=== PATIENT | female | born 1995 | race Caucasian/White ===

== ENCOUNTER 2018-07-30 17:43 | Observation (INO) | payer MEDICAID ==
[~2018-07-30] VITALS: Ht 162.6 cm; Wt 55.3 kg
--- NOTE | 2018-07-30 00:15 | NUR ---
FLUSHED IV AND RE-TAPED IT IS SOUNDING OCCLUSION ALARMS OFTEN. WILL CONTINUE TO MONITOR FOR NEEDS.
[2018-07-30] MEDS ORDERED: PRENAVITE1 TAB PO (17:59)
[2018-07-30 18:35] LABS: BASOPHILS 0.1 % (0-2); EOSINOPHILS 0.9 % (0-7); HEMATOCRIT 37.1 % (36.0-48.0); HEMOGLOBIN 12.8 g/dL (12-16); IMMATURE GRANULOCYTES 0.2 % (0-5); LYMPHOCYTES 16.3 % (15-50); MCH 30.7 pg (26.0-34.0); MCHC 34.5 g/dL (31.0-37.0); MEAN PLATELET VOLUME 10.8 fL (7.4-10.4); MONOCYTES 8.5 % (2-11); PLATELET COUNT 212 10x3/uL (130-400); RBC 4.17 10x6/uL (4.00-5.40); RDW 14.2 % (11.5-14.5); WBC 13.2 10x3/uL (4.8-10.8)
[2018-07-30 18:48] LABS: ALBUMIN 3.3 g/dL (3.4-5.0); ALKALINE PHOSPHATASE 48 U/L (46-116); ALT (SGPT) 14 U/L (10-68); AMYLASE - SERUM 61 U/L (25-115); BILIRUBIN - TOTAL 0.35 mg/dL (0.2-1.3); CALC OSMOLALITY 268 mosm/kg (275-300); CALCIUM 8.3 mg/dL (8.5-10.1); CARBON DIOXIDE 25.4 mmol/L (21.0-32.0); CHLORIDE - SERUM 103 mmol/L (98-107); CREATININE - SERUM 0.6 mg/dL (0.6-1.3); GLUCOSE 87 mg/dL (74-106); LIPASE 145 U/L (73-393); POTASSIUM - SERUM 3.5 mmol/L (3.5-5.1); PROTEIN - SERUM 6.9 g/dL (6.4-8.2); SODIUM 136 mmol/L (136-145); UREA NITROGEN 7 mg/dL (7-18); eGFR NON AFRICAN AMERICAN > 90 mL/min (90-120)
--- NOTE | 2018-07-30 19:10 | NUR ---
REPORT GIVEN TO NATE CARUSO
--- NOTE | 2018-07-30 19:15 | NUR ---
PT RETURNED FROM ULTRASOUND.
[2018-07-30 19:36] LABS: APPEARANCE CLEAR (CLEAR); COLOR YELLOW (YELLOW); SPECIFIC GRAVITY 1.015 (1.005-1.020)
[2018-07-30 19:37] LABS: BILIRUBIN NEGATIVE (NEGATIVE); EPITHELIAL CELLS OCC /hpf (0-5); GLUCOSE NEGATIVE (NEGATIVE); KETONE NEGATIVE (NEGATIVE); NITRITE NEGATIVE (NEGATIVE); PROTEIN NEGATIVE (NEGATIVE); UROBILINOGEN NORMAL (NORMAL); WHITE CELLS - URINE 0-5 /hpf (0-5)
[2018-07-30 19:38] LABS: BACTERIA MODERATE /hpf (NONE SEEN)
[2018-07-30 19:47] LABS: HCG SERUM POSITIVE (NEGATIVE)
--- NOTE | 2018-07-30 20:08 | NUR ---
PT TO ULTRASOUND
--- NOTE | 2018-07-30 20:23 | NUR ---
PT RETURNED FROM ULTRASOUND
[2018-07-30 20:30] VITALS: BP 99/57
--- NOTE | 2018-07-30 20:30 | NUR ---
PLAN OF CARE DISCUSSED WITH PT, PT VERBALIZES UNDERSTANDING, RR EVEN AND UNLABORED, VSS, PT REPORTS PAIN 08/25, DR GRAY INFORMED, ORDERS TO GIVE PT DILAUDID FOR PAIN IF PT FEELS SHE NEEDS IT AT THIS TIME.
--- NOTE | 2018-07-30 21:21 | NUR ---
PT ARRIVED ON UNIT VIA WHEELCHAIR ESCORTED BY ER NURSE AND FAMILY MEMBERS. IV IN LEFT AC PATENT WITH NS INFUSING AT 100 ML / HR. NPO STATUS IN PLACE AND POSTED ON PT'S DOOR.
[2018-07-30 22:54] VITALS: BP 105/65; BMI 21.0
--- NOTE | 2018-07-30 23:21 | NUR ---
GAVE DILAUDID 0.5 MG IVP PER REQUEST FOR C/O ABDOMINAL PAIN. WILL CONTINUE TO MONITOR FOR NEEDS.
[2018-07-31 01:22] VITALS: BP 86/54
[2018-07-31 04:37] LABS: BASOPHILS 0.1 % (0-2); EOSINOPHILS 1.1 % (0-7); HEMATOCRIT 33.7 % (36.0-48.0); HEMOGLOBIN 11.4 g/dL (12-16); IMMATURE GRANULOCYTES 0.3 % (0-5); LYMPHOCYTES 21.6 % (15-50); MCH 30.6 pg (26.0-34.0); MCHC 33.8 g/dL (31.0-37.0); MCV 90.3 fL (80.0-100.0); MEAN PLATELET VOLUME 10.7 fL (7.4-10.4); MONOCYTES 8.6 % (2-11); NEUTROPHILS 68.3 % (40-80); PLATELET COUNT 183 10x3/uL (130-400); RBC 3.73 10x6/uL (4.00-5.40); RDW 14.2 % (11.5-14.5)
[2018-07-31 04:44] LABS: WBC 9.7 10x3/uL (4.8-10.8)
[2018-07-31 04:59] LABS: CALC OSMOLALITY 274 mosm/kg (275-300); CALCIUM 8.4 mg/dL (8.5-10.1); CARBON DIOXIDE 25.6 mmol/L (21.0-32.0); CHLORIDE - SERUM 106 mmol/L (98-107); CREATININE - SERUM 0.6 mg/dL (0.6-1.3); GLUCOSE 87 mg/dL (74-106); MAGNESIUM - SERUM 1.8 mg/dL (1.8-2.4); PHOSPHOROUS 4.1 mg/dL (2.5-4.9); POTASSIUM - SERUM 3.6 mmol/L (3.5-5.1); SODIUM 139 mmol/L (136-145); UREA NITROGEN 7 mg/dL (7-18); eGFR NON AFRICAN AMERICAN > 90 mL/min (90-120)
[2018-07-31 05:14] VITALS: BP 86/38
[2018-07-31 08:47] VITALS: BP 79/38
[2018-07-31 10:26] VITALS: BMI 20.9
[2018-07-31 12:41] VITALS: BP 92/56
[2018-07-31 13:01] VITALS: Ht 162.6 cm; Wt 55.3 kg
--- NOTE | 2018-07-31 15:59 | NUR ---
PT IS 11 WEEKS PER REPORT
--- NOTE | 2018-07-31 16:10 | NUR ---
PT STATES "THIS IS THE FIRST TIME I HAVEN'T HAD ANY PAIN FOR A WHILE"
--- NOTE | 2018-07-31 16:48 | NUR ---
PER REQUEST OF GEEK SQUAD MANAGER, ATTEMPTED TO AUSCULTATE FHTS VIA DOPPLER, L&D NURSES ENGAGED IN A DELIVERY. UNSUCCESSFUL, REFERRED BACK TO GEEK SQUAD MANAGER FOR FOLLOW-UP WITH L&D.
--- NOTE | 2018-07-31 16:55 | NUR ---
CALLED TO COME FROM L&D TO CHECK FHT'S WITH FELICE. FHT'S EASILY OBTAINED AT 160'S-170'S. PT AND FAMILY WERE ABLE TO HEAR. REPORT TO NURSE CARING FOR PATIENT. PT IS POST OP APPENDECTOMY.
[2018-07-31 18:07] VITALS: BP 93/47
--- NOTE | 2018-07-31 18:55 | NUR ---
I have reviewed this patient and I concur with the Shift Assessment completed by the Licensed Practical Nurse today this shift.
--- NOTE | 2018-07-31 19:00 | NUR ---
REPORT RECEIVED AND CARE OF PT ASSUMED. PT LYING IN MID WEAVER'S POSITION VISITING WITH FAMILY MEMBERS. IV IN LEFT AC PATENT WITH NS INFUSING AT 100 ML / HR. WILL MONITOR FOR NEEDS.
[2018-07-31 20:00] VITALS: BP 92/58
--- NOTE | 2018-07-31 20:58 | NUR ---
HS MEDICATIONS GIVEN TO INCLUDE NORCO AND BENADRYL PO PER PRN ORDERS FOR PAIN. WILL MONITOR FOR EFFECTIVENESS.
[2018-08-01] VITALS: BP 131/58
[2018-08-01 04:00] VITALS: BP 85/44
[2018-08-01 05:14] LABS: BASOPHILS 0.1 % (0-2); HEMOGLOBIN 10.5 g/dL (12-16); IMMATURE GRANULOCYTES 0.1 % (0-5); LYMPHOCYTES 17.5 % (15-50); MCH 30.3 pg (26.0-34.0); MCHC 33.9 g/dL (31.0-37.0); MCV 89.3 fL (80.0-100.0); MEAN PLATELET VOLUME 11.1 fL (7.4-10.4); MONOCYTES 9.4 % (2-11); NEUTROPHILS 71.9 % (40-80); PLATELET COUNT 173 10x3/uL (130-400); RBC 3.47 10x6/uL (4.00-5.40); RDW 14.3 % (11.5-14.5); WBC 8.3 10x3/uL (4.8-10.8)
[2018-08-01 05:43] LABS: CALC OSMOLALITY 273 mosm/kg (275-300); CALCIUM 7.7 mg/dL (8.5-10.1); CARBON DIOXIDE 22.9 mmol/L (21.0-32.0); CHLORIDE - SERUM 108 mmol/L (98-107); CREATININE - SERUM 0.6 mg/dL (0.6-1.3); GLUCOSE 76 mg/dL (74-106); MAGNESIUM - SERUM 1.4 mg/dL (1.8-2.4); PHOSPHOROUS 3.5 mg/dL (2.5-4.9); POTASSIUM - SERUM 3.8 mmol/L (3.5-5.1); SODIUM 139 mmol/L (136-145); eGFR NON AFRICAN AMERICAN > 90 mL/min (90-120)
[2018-08-01 05:45] LABS: UREA NITROGEN 5 mg/dL (7-18)
[2018-08-01 08:49] VITALS: BP 91/45
[2018-08-01] MEDS ORDERED: HYDROCODON-ACE1 EAC7 PO (10:21)
== END 2018-08-01 11:29 | disposition home or self-care (01) ==
LOC: D.ER 17:43 → OBSVTIME 19:59 → D.MS 19:59
PROVIDERS: Emergency Medicine; ADMIT Family Medicine; ATTEND Family Medicine
DX: O99.611 Diseases of the digestive system complicating pregnancy, first trimester (principal); Z3A.08 8 weeks gestation of pregnancy